=== PATIENT | male | born 1990 | race African-American/Black ===

== ENCOUNTER 2022-11-12 15:44 | Emergency (ER) | payer SELFPAY ==
[~2022-11-12] VITALS: Ht 187.9 cm; Wt 90.7 kg
[2022-11-12] MEDS ORDERED: AMOX1TAB12 PO (16:07)
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
[2022-11-12 16:12] VITALS: BP 119/75
== END 2022-11-12 16:12 | disposition home or self-care (01) ==
LOC: ER 15:46
DX: H66.91 Otitis media, unspecified, right ear (principal)
CPT/HCPCS: 99282